=== PATIENT | male | born 1960 | race Caucasian/White ===

== ENCOUNTER 2020-09-20 08:17 | Outpatient (REF) | payer BC, SELFPAY ==
[2020-09-20 10:17] LABS: MANUAL DIFF FLAG NO
[2020-09-20 10:24] LABS: Basophils Percent Auto 0.7 % (0-2); Eosinophils Absolute Auto 0.3 X10*3/uL (0.0-0.4); Eosinophils Percent Auto 4.7 % (0-4); Hematocrit 50.7 % (42-52); Hemoglobin 17.5 g/dl (14.0-18.0); Imm Gran Abs Auto 0.02 X10*3/uL (0.00-0.03); Imm Gran Pct Auto 0.3 % (0.0-0.4); Lymphocytes Absolute Auto 1.2 X10*3/uL (1.2-4.9); Lymphocytes Percent Auto 20.7 % (20-40); Mean Corpuscular HGB Conc 34.5 g/dl (31.0-36.0); Mean Corpuscular Hemoglobin 31.3 pg (27.0-33.0); Mean Corpuscular Volume 90.5 fL (80-98); Mean Platelet Volume 9.8 fL (9.4-12.4); Monocytes Absolute Auto 0.5 X10*3/uL (0.1-1.2); Monocytes Percent Auto 8.5 % (2-11); Neutrophils Absolute Auto 3.9 X10*3/uL (2.0-8.3); Neutrophils Percent Auto 65.1 % (45-73); Platelet Count 254 X10*3/uL (160-400); Red Cell Distribution Width 12.6 % (11.0-16.0)
[2020-09-20 10:47] LABS: Alanine Aminotransferase 20 U/L (0-40); Albumin Level 4.3 g/dL (3.5-5.0); Alkaline Phosphatase 68 U/L (39-117); Anion Gap 11 (12-20); Aspartate Amino Transferase 22 U/L (5-37); Bilirubin Total 1.3 mg/dL (0.0-1.0); Blood Urea Nitrogen 14 mg/dL (9-16); Calcium 8.7 mg/dL (8.4-10.2); Carbon Dioxide 28 mmol/L (22-29); Chloride 103 mmol/L (96-108); Cholesterol 223 mg/dL; Estimated Glomerular Filt Rate > 60; Glucose Fasting 90 mg/dL (60-99); HDL Cholesterol 59 mg/dL; LDL Cholesterol Calculated 145 mg/dl; Potassium 4.2 mmol/l (3.3-5.1); Sodium 138 mmol/L (135-145); Triglycerides 98 mg/dL
== END 2020-09-20 08:18 | disposition home or self-care (01) ==
LOC: HO.10HDL 08:17
PROVIDERS: PCP Internal Medicine; Visit Provider Internal Medicine
DX: I10 Essential (primary) hypertension (principal)
CPT/HCPCS: 36415; 80053; 80061; 85025

== ENCOUNTER 2022-09-06 07:48 | Outpatient (REF) | payer BC, SELFPAY ==
[2022-09-06 08:05] LABS: MANUAL DIFF FLAG NO
[2022-09-06 08:45] LABS: Basophils Percent Auto 0.7 % (0-2); Eosinophils Absolute Auto 0.3 X10*3/uL (0.0-0.4); Eosinophils Percent Auto 4.2 % (0-4); Hematocrit 50.1 % (42.0-52.0); Hemoglobin 17.3 g/dl (14.0-18.0); Imm Gran Abs Auto 0.02 X10*3/uL (0.00-0.03); Imm Gran Pct Auto 0.3 % (0.0-0.4); Lymphocytes Absolute Auto 1.4 X10*3/uL (1.2-4.9); Lymphocytes Percent Auto 23.7 % (20-40); Mean Corpuscular HGB Conc 34.5 g/dl (31.0-36.0); Mean Corpuscular Hemoglobin 30.8 pg (27.0-33.0); Mean Corpuscular Volume 89.3 fL (80.0-98.0); Mean Platelet Volume 9.3 fL (9.4-12.4); Monocytes Absolute Auto 0.5 X10*3/uL (0.1-1.2); Monocytes Percent Auto 8.2 % (2-11); Neutrophils Absolute Auto 3.8 x10*3/uL (2.0-8.3); Neutrophils Percent Auto 62.9 % (45-73); Platelet Count 215 X10*3/uL (160-400); Red Blood Count 5.61 X10*6/uL (4.60-5.80)
[2022-09-06 09:15] LABS: Alanine Aminotransferase 18 U/L (0-40); Albumin Level 4.3 g/dL (3.5-5.0); Alkaline Phosphatase 61 U/L (39-117); Anion Gap 14 (12-20); Aspartate Amino Transferase 22 U/L (5-37); Bilirubin Total 1.7 mg/dL (0.0-1.0); Blood Urea Nitrogen 19 mg/dL (9-16); Calcium 9.5 mg/dL (8.4-10.2); Carbon Dioxide 27 mmol/L (22-29); Chloride 103 mmol/L (96-108); Cholesterol 218 mg/dL; Estimated Glomerular Filt Rate > 60; Glucose Fasting 91 mg/dL (60-99); HDL Cholesterol 57 mg/dL; LDL Cholesterol Calculated 143 mg/dl; Potassium 4.4 mmol/L (3.3-5.1); Sodium 140 mmol/L (135-145); Total Protein 6.8 g/dL (6.5-8.0); Triglycerides 92 mg/dL
[2022-09-06 09:41] LABS: Thyroid Stimulating Hormone 2.08 uIU/mL (0.32-4.0)
[2022-09-06 10:13] LABS: Prostate Specific Antigen Scr 4.94 ng/mL (<0.05-4.0)
== END 2022-09-06 07:49 | disposition home or self-care (01) ==
LOC: HO.LAB 07:48
PROVIDERS: PCP Internal Medicine; Visit Provider Internal Medicine
DX: Z00.00 Encounter for general adult medical examination without abnormal findings (principal); E03.9 Hypothyroidism, unspecified; E78.5 Hyperlipidemia, unspecified; I10 Essential (primary) hypertension; Z13.0 Encounter for screening for diseases of the blood and blood-forming organs and certain disorders involving the immune mechanism; Z12.5 Encounter for screening for malignant neoplasm of prostate
CPT/HCPCS: 36415; 80053; 80061; 84153; 84443; 85025

== ENCOUNTER 2023-10-05 08:12 | Outpatient (REF) | payer BC, SELFPAY ==
[2023-10-05 08:52] LABS: MANUAL DIFF FLAG NO
[2023-10-05 09:14] LABS: Basophils Percent Auto 0.5 % (0-2); Eosinophils Absolute Auto 0.3 X10*3/uL (0.0-0.4); Eosinophils Percent Auto 4.7 % (0-4); Hematocrit 49.3 % (42.0-52.0); Hemoglobin 17.1 g/dl (14.0-18.0); Imm Gran Abs Auto 0.02 X10*3/uL (0.00-0.03); Imm Gran Pct Auto 0.4 % (0.0-0.4); Lymphocytes Absolute Auto 1.1 X10*3/uL (1.2-4.9); Lymphocytes Percent Auto 20.2 % (20-40); Mean Corpuscular HGB Conc 34.7 g/dl (31.0-36.0); Mean Corpuscular Hemoglobin 31.5 pg (27.0-33.0); Mean Corpuscular Volume 90.8 fL (80.0-98.0); Mean Platelet Volume 9.1 fL (9.4-12.4); Monocytes Absolute Auto 0.5 X10*3/uL (0.1-1.2); Monocytes Percent Auto 8.5 % (2-11); Neutrophils Absolute Auto 3.6 x10*3/uL (2.0-8.3); Neutrophils Percent Auto 65.7 % (45-73); Platelet Count 229 X10*3/uL (160-400); Red Blood Count 5.43 X10*6/uL (4.60-5.80); Red Cell Distribution Width 12.8 % (11.0-16.0); White Blood Count 5.5 X10*3/uL (4.8-10.8)
[2023-10-05 09:53] LABS: Alanine Aminotransferase 17 U/L (0-40); Albumin Level 4.2 g/dL (3.5-5.0); Alkaline Phosphatase 62 U/L (39-117); Anion Gap 10 (12-20); Aspartate Amino Transferase 20 U/L (5-37); Bilirubin Total 1.1 mg/dL (0.0-1.0); Blood Urea Nitrogen 18 mg/dL (9-16); Calcium 9.3 mg/dL (8.4-10.2); Carbon Dioxide 28 mmol/L (22-29); Chloride 107 mmol/L (96-108); Cholesterol 214 mg/dL (<200); Estimated Glomerular Filt Rate > 60; Glucose Fasting 96 mg/dL (60-99); HDL Cholesterol 55 mg/dL (>40); LDL Cholesterol Calculated 136 mg/dL (<100); Potassium 4.6 mmol/L (3.3-5.1); Sodium 140 mmol/L (135-145); Triglycerides 119 mg/dL (<150)
== END 2023-10-05 08:13 | disposition home or self-care (01) ==
LOC: HO.LAB 08:12
PROVIDERS: PCP Internal Medicine; Visit Provider Internal Medicine
DX: Z00.00 Encounter for general adult medical examination without abnormal findings (principal); Z12.5 Encounter for screening for malignant neoplasm of prostate; E78.5 Hyperlipidemia, unspecified; N28.9 Disorder of kidney and ureter, unspecified; D64.9 Anemia, unspecified
CPT/HCPCS: 36415; 80053; 80061; 84153; 85025

== ENCOUNTER 2023-11-20 09:19 | Outpatient (AMB) | payer BC, SELFPAY ==
[2023-11-20 09:19] VITALS: BP 118/72; PULSE 69; O2SAT 100; BMI 23.8
--- NOTE | 2023-11-20 09:19 | MHC.PC.OV ---
Vital Signs 11/20/23 09:19 Height 5 ft 8.5 in Weight 159 lb BMI 23.8 BP 118/72 Blood Pressure Location Lt brachial Position Sitting Pulse 69 Pulse Source Pulse Oximeter Pulse Oximetry (%) 100 Oxygen Delivery Method Room Air Intake Visit Reasons: 3mth f/u Sound Engineer Required: No Allergies No Known Allergies Allergy (Verified 11/20/23 09:20) Medication List - Last Reconciled 11/20/23 by Alan Vazquez MD atenolol 25 mg PO BID Tobacco use date assessed: 11/20/23 HPI 3mth f/u HPI Details HTN on Rx; doing well; com[pliant PFSH Medical History (Updated 05/21/23 @ 13:59 by Alan Vazquez MD) Hyperlipidemia Surgical History No pertinent past surgical history Family History Father No problems noted. Mother No problems noted. 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 How often do you have a drink containing alcohol?: Never Total Score: 0 GANGA-7 AMB Questionnaire GANGA-7 Date GANGA - 7 assessed: 02/13/23 Source: Developed by Drs. Ha Nicolas, Zena Casey, Aquilino Bridges and colleagues, with an educational toma from [employer]. Review of Systems Const Denies chills, Denies headache(s) and Denies weight loss ENT Denies headache(s) Card Denies chest pain, Denies syncope, Denies irregular heart rhythm and Denies dyspnea Resp Denies chest congestion, Denies cough and Denies dyspnea GI Denies abdominal pain, Denies change in stool character, Denies nausea and Denies vomiting Musc Denies deformity and Denies joint swelling Neuro Denies syncope and Denies headache(s) Physical exam (Primary Care) Vital Signs: Last Vital Signs Pulse 69 11/20/23 09:19 BP 118/72 11/20/23 09:19 Pulse Ox 100 11/20/23 09:19 Oxygen Delivery Method Room Air 11/20/23 09:19 BMI result Body Mass Index 23.8 Tobacco/Smoking Status: Tobacco use Status Tobacco use date assessed 11/20/23 11/20/23 09:25 Patient Tobacco Use Status Never used Tobacco 11/20/23 09:25 e-Cigarette/Vaping Use Never Used 11/20/23 09:25 Thrive Assessment: Date of Thrive Assessment Date Thrive assessed 02/13/23 11/20/23 09:25 Const General: cooperative, comfortable, no acute distress and alert Neck Neck: Yes no lymphadenopathy Thyroid: Thyroid normal Resp Effort & Inspection: normal respiratory effort Auscultation: clear to auscultation bilaterally Percussion: percussion normal Cardio Jugular venous distension: no JVD Palpation: normal PMI Rate: regular rate Rhythm: regular rhythm Heart sounds: S1 normal heart sound present and S2 normal heart sound present GI Inspection: Yes normal to inspection Palpation (GI): No hepatosplenomegaly present Skin General skin exam: no rashes or lesions noted Extrem General: Yes no clubbing, cyanosis or edema Assessment and Plan Assessment & Plan (1) Hypertension: Code(s): I10 - Essential (primary) hypertension Plan: stable; samerx Coding Level of Care Code Est Pt Level 3 (71517) Diagnoses Hypertension I10
== END 2023-11-20 09:36 | disposition home or self-care (01) ==
PROVIDERS: PCP Internal Medicine; Visit Provider Internal Medicine
DX: I10 Essential (primary) hypertension (principal)
CPT/HCPCS: 99213

== ENCOUNTER 2024-02-04 10:28 | Day surgery (SDC) | payer BC, SELFPAY ==
[2024-01-31 12:35] VITALS: BMI 23.7
--- NOTE | 2024-01-31 14:34 | P.CONAN_ITS ---
Documented by User: Doreen Mcwilliams NP 01/31/24 14:34 HPI - Anesthesia Eval Consult details Narrative: 63yo M for Colonoscopy [facility] Active Problems Active Problems: All Active Problems (Updated 01/31/24 @ 12:28 by Suzanne Barreto RN) Colon polyps (Acute) Hearing loss (Acute) Hypertension (Acute) Physical exam (Acute) Hyperlipidemia (Acute) Past Medical History Medical History Palpitations Hyperlipidemia Family History Family History Father No problems noted. Mother No problems noted. 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 Mother No problems noted. Family history of problems with anesthesia: No Surgical History Surgical History Hx of eye surgery H/O colonoscopy History of Problems with Anesthesia: No Social History Social History (Updated 05/19/22 @ 13:41 by CHRISTIANO Sampson) Housing: House Alcohol intake: current Alcohol intake frequency: holidays/special occasions only Patient Tobacco Use Status: Never used Tobacco e-Cigarette/Vaping Use: Never Used Second Hand Smoke Exposure: No Use of substances other than those prescribed or required for medical reasons: No Are you DNR?: No Advance Directives: No Advance Directives Information Provided: Yes service: No Current occupational status: employed 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 Cognitive needs: No Hearing needs: No Vision needs: Yes (glasses) Meds Allergies Allergy/AdvReac Type Severity Reaction Status Date / Time No Known Allergies Allergy Verified 02/04/24 10:41 Exam Airway Mallampati Class: II TM Dist: >3cm Neck ROM: Full Partial: Upper Heart: rrr Lungs: cta Assessment and Plan Assessment Anesthesia Assessment: Anesthesia Plan Discussed Final Anesthetic Review Family History of Problems with Anesthesia: No History of Problems with Anesthesia: No NPO: Yes ASA Class: II Final Preanesthetic Review: No Changes in Pt Med Stat, Meds/Allgs Chart Reviewed and Consent Obtained/Reviewed Patient Risk: Low Procedure Risk: Low Anesthetic Plan Anesthetic Plan: MAC: Disposition: Standard PACU
[2024-02-04 10:42] VITALS: BMI 22.5
[2024-02-04 10:44] VITALS: BP 124/75; PULSE 68; RESP 16; TEMP 36.2; O2SAT 98
[2024-02-04] MEDS: Lactated Ringers 1,000 ML 100 ML IVCONT (10:54)
--- NOTE | 2024-02-04 11:53 | PM.OP ---
Brief Operative Note Date of Service: 02/04/24 Pre-op diagnosis: Screening Post-op diagnosis: other (Diverticulosis) Procedure: Colonoscopy to the cecum and TI Surgeon: Ha Anderson MD Anesthesia: MAC Was an Ship'S Pilot used for this Procedure?: No Estimated blood loss (mL): 0 Pathology: none sent Condition: stable Disposition: PACU
[2024-02-04 11:54] VITALS: BP 81/44; PULSE 68; RESP 18; TEMP 37; O2SAT 98
[2024-02-04 12:09] VITALS: BP 90/49; PULSE 64; RESP 18; O2SAT 97
[2024-02-04 12:23] VITALS: BP 116/67; PULSE 57; RESP 16; TEMP 36.4; O2SAT 99
--- NOTE | 2024-02-04 12:35 | OP_ITS ---
DATE OF SERVICE: 02/04/2024 SURGEON: Ha Anderson MD INDICATIONS: The patient presents for evaluation of colorectal cancer screening and personal history of tubular adenoma of the colon. Full consent has been obtained from him for this, including risks of bleeding and perforation. PREOPERATIVE DIAGNOSIS: Colorectal cancer screening and personal history of tubular adenoma of the colon. POSTOPERATIVE DIAGNOSIS: PROCEDURE PERFORMED: Colonoscopy to cecum and terminal ileum. ESTIMATED BLOOD LOSS: COMPLICATIONS: ANESTHESIA: Monitored anesthesia care. ASSISTANTS: SPECIMENS: POSTOPERATIVE DIAGNOSES: Colorectal cancer screening and personal history of tubular adenoma of the colon, diverticulosis, and internal hemorrhoids. DESCRIPTION OF PROCEDURE: The patient was placed in the left lateral decubitus position. The digital rectal exam revealed no abnormalities. The Olympus video pediatric colonoscope was entered into the rectum and advanced easily to the cecum. Once in the cecum, I did identify normal-appearing cecal pouch with appendiceal orifice and a normal-appearing ileocecal valve. The terminal ileum was cannulated and appeared normal. The scope was withdrawn back in the colon. The entire cecum and ileocecal valve appeared normal. Scope was slowly withdrawn assessing all mucosal surfaces carefully. Preparation was excellent. I did not visualize any sign of polyps, colitis, nor angiodysplasia. There was a mild amount of sigmoid diverticulosis. In the rectum, scope was retroflexed visualizing internal hemorrhoids, but no other pathology. The rectal mucosa appeared normal. The scope was straightened and withdrawn from the patient. He tolerated the procedure well and was returned to the recovery area in stable condition. IMPRESSION: 1. Diverticulosis. 2. Internal hemorrhoids. PLAN: I would recommend a repeat colonoscopy in 5 years for further screening. He will otherwise see me on a p.r.n. basis. This has been discussed with his sister. MD LETITIA Raza/IVONEL / [phone]
== END 2024-02-04 13:16 | disposition home or self-care (01) ==
PROVIDERS: PCP Internal Medicine; Visit Provider Internal Medicine
PROC: 0DJD8ZZ Inspection of Lower Intestinal Tract, Via Natural or Artificial Opening Endoscopic (ICD-10-PCS; CPT 45378; principal; 2024-02-04 11:10)
DX: Z12.11 Encounter for screening for malignant neoplasm of colon (principal); Z86.010 Personal history of colon polyps; K57.30 Diverticulosis of large intestine without perforation or abscess without bleeding; K64.8 Other hemorrhoids; R00.2 Palpitations; Z79.899 Other long term (current) drug therapy
CPT/HCPCS: 45378; J2704

== ENCOUNTER 2024-05-26 09:45 | Outpatient (AMB) | payer BC, SELFPAY ==
[2024-05-26 09:47] VITALS: BP 118/72; PULSE 68; O2SAT 98; BMI 23.7
--- NOTE | 2024-05-26 09:47 | A.OFFPC_ITS ---
Vital Signs 05/26/24 09:47 Height 5 ft 8.5 in Weight 158 lb BMI 23.7 BP 118/72 Blood Pressure Location Lt brachial Position Sitting Pulse 68 Pulse Source Pulse Oximeter Pulse Oximetry (%) 98 Oxygen Delivery Method Room Air Intake Visit Reasons: Annual Exam Stave Cutting Supervisor Required: No Fire Prevention Bureau Captain: Not Required per policy Accompanied by: Self / Same As Patient Allergies No Known Allergies Allergy (Verified 05/26/24 09:47) Medication List - Last Reconciled 05/26/24 by Alan Vazquez MD atenolol 25 mg PO BID Tobacco use date assessed: 05/26/24 Dental Screening Dental Screen Date: 05/26/24 Did you have a dental visit in the last 12 months?: Yes Did you have a dental problem in the last 6 months where you did not have access to dental care?: No Was dental information given to patient?: Patient has dentist HPI Annual Exam HPI Details HTN on Rx; doing well PFSH Medical History Palpitations Hyperlipidemia Surgical History Hx of eye surgery H/O colonoscopy Family History Father No problems noted. Mother No problems noted. 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 1. Little interest or pleasure in doing things: not at all 2. Feeling down, depressed, or hopeless: not at all 3. Trouble falling or staying asleep, or sleeping too much: not at all 4. Feeling tired or having little energy: not at all 5. Poor appetite or overeating: not at all 6. Feeling bad about yourself - or that you are a failure or have let yourself or your family down: not at all 7. Trouble concentrating on things, such as reading the newspaper or watching television: not at all 8. Moving or speaking so slowly that other people could have noticed. Or the opposite - being so fidgety or restless that you have been moving around a lot more than usual: not at all 9. Thoughts that you would be better off or of hurting yourself in some way: not at all Total score: 0 Depression Screening Interpretation: Negative Depression Screening Done: Yes 92216 - PHQ-9 Billing: Yes Source: Developed by Drs. Ha Nicolas, Zena Casey, Aquilino Bridges and colleagues, with an educational toma from [employer]. Thrive Questionnaire Date Thrive assessed: 05/26/24 I am a: Patient What is your living situation today?: I have a steady place to live Within the past 12 months, did the food you bought not last and you didn't have the money to get more?: Never true Within the past 12 months, did you worry whether your food would run out before you got money to buy more?: Never true Do you have trouble paying for medicines?: No Do you have trouble getting transportation to medical appointments?: No Do you have trouble paying your heating and electricity bill?: No Do you have trouble taking care of your child, family member or friend?: No Do you have trouble with day-to-day activities such as bathing, preparing meals, shopping, managing finances, etc.?: No Are you currently unemployed and looking for a job?: No Are you interested in more education?: No Please select the resources that you would like help with: None THRIVE Score: 0 AUDIT C Alcohol Use Questionnaire (AUDIT-C) 1. How often do you have a drink containing alcohol?: Never Total Score: 0 GAGNA-7 AMB Questionnaire GANGA-7 Date GANGA - 7 assessed: 02/13/23 Source: Developed by Drs. Ha Nicolas, Zena Casey, Aquilino crawford nd colleagues, with an educational toma from [employer]. Review of Systems Const Denies chills, Denies fatigue, Denies headache(s) and Denies weight loss Eyes Denies change in vision, Denies diplopia and Denies eye pain ENT Denies vertigo, Denies dizziness, Denies headache(s) and Denies nasal discharge Card Denies chest pain, Denies rapid heart rate and Denies dyspnea on exertion Resp Denies chest congestion, Denies cough, Denies pain with cough and Denies dyspnea on exertion GI Denies abdominal pain, Denies hematochezia and Denies change in bowel habits Musc Denies myalgias, Denies arthralgias and Denies joint swelling Skin/Breast Denies lesions and Denies unusual bruising Neuro Denies vertigo, Denies dizziness, Denies headache(s) and Denies focal weakness Endo Denies fatigue Physical exam (Primary Care) Vital Signs: Last Vital Signs Pulse 68 05/26/24 09:47 BP 118/72 05/26/24 09:47 Pulse Ox 98 05/26/24 09:47 Oxygen Delivery Method Room Air 05/26/24 09:47 BMI result Body Mass Index 23.7 Tobacco/Smoking Status: Tobacco use Status Tobacco use date assessed 05/26/24 05/26/24 09:48 Patient Tobacco Use Status Never used Tobacco 05/26/24 09:48 e-Cigarette/Vaping Use Never Used 05/26/24 09:48 PHQ-9: PHQ-9 Score PHQ-9: Total score 0 05/26/24 09:48 Depression Screening Interpretation: Negative Thrive Assessment: Date of Thrive Assessment Date Thrive assessed 05/26/24 05/26/24 09:48 Const General: cooperative, healthy appearing and no acute distress Orientation/consciousness: oriented to person, oriented to place and oriented to time [facility] Head: Yes normal to inspection, Yes normocephalic and Yes atraumatic Mouth: Normal oral and palatal mucosa present and tongue normal Throat: Yes posterior oropharynx normal and Yes uvula midline Eyes General: appearance normal, both eyes and all related structures Neck Neck: Yes normal visual inspection, Yes full ROM and Yes no lymphadenopathy Thyroid: Thyroid normal Carotids: normal carotid upstroke Chest Chest palpation & inspection: normal inspection of the chest Resp Effort & Inspection: normal respiratory effort and able to speak in complete sentences Auscultation: clear to auscultation bilaterally Cardio Jugular venous distension: no JVD Palpation: normal PMI Rate: regular rate Rhythm: regular rhythm Heart sounds: S1 normal heart sound present and S2 normal heart sound present GI Inspection: Yes normal to inspection Palpation (GI): Soft to palpation and No hepatosplenomegaly present Auscultation: normal bowel sounds General: Yes no CVA tenderness Back/Spine/Pelvis Back: no CVA tenderness Skin General skin exam: no rashes or lesions noted Neuro General: oriented to person, oriented to place and oriented to time Extrem General: Yes normal to inspection and Yes full ROM Assessment and Plan Assessment & Plan (1) Physical exam: Code(s): Z00.00 - Encounter for general adult medical examination without abnormal findings Plan: stable; do labs (2) Hypertension: Code(s): I10 - Essential (primary) hypertension Plan: stable; same rx Orders: Orders Lipid Panel Today Z13.220 - Encounter for screening for lipoid disorders Thyroid Stimulating Hormone Today Z13.29 - Encounter for screening for other suspected endocrine disorder Complete Blood Count Auto Diff Today Z13.0 - Encounter for screening for diseases of the blood and blood-forming organs and certain disorders involving the immune mechanism Comprehensive [place]. Panel Fast Today Z13.9 - Encounter for screening, unspecified Coding Level of Care Code Est Pt Prev Care 40-64y(61194) Diagnoses Physical exam Z00.00 Hypertension I10
== END 2024-05-26 10:03 | disposition home or self-care (01) ==
PROVIDERS: PCP Internal Medicine; Visit Provider Internal Medicine
DX: Z00.00 Encounter for general adult medical examination without abnormal findings (principal); I10 Essential (primary) hypertension
CPT/HCPCS: 99396

== ENCOUNTER 2024-06-17 11:12 | Outpatient (AMB) | payer BC, SELFPAY ==
[2024-06-17 11:13] VITALS: BP 110/72; PULSE 70; O2SAT 98; BMI 23.8
--- NOTE | 2024-06-17 11:13 | MHC.PC.OV ---
Vital Signs 06/17/24 11:13 Height 5 ft 8.5 in Weight 159 lb BMI 23.8 BP 110/72 Blood Pressure Location Lt brachial Position Sitting Pulse 70 Pulse Source Pulse Oximeter Pulse Oximetry (%) 98 Oxygen Delivery Method Room Air Intake Visit Reasons: Vertigo, Hearing issues Developmental Specialist: Not Required per policy Accompanied by: Self / Same As Patient Allergies No Known Allergies Allergy (Verified 06/17/24 11:13) Medication List - Last Reconciled 06/17/24 by Alan Vazquez MD atenolol 25 mg PO BID Tobacco use date assessed: 05/26/24 Fall risk assessment: No Falls in past year Last assessed Fall Risk: 06/17/24 Dental Screening Dental Screen Date: 05/26/24 HPI Vertigo, Hearing issues HPI Details vertigo and decreased hearing in left ear for 2 weeks PFSH Medical History Palpitations Hyperlipidemia Surgical History Hx of eye surgery H/O colonoscopy Family History Father No problems noted. Mother No problems noted. 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 Ha Nicolas, Zena Casey, Aquilino Bridges and colleagues, with an educational toma from [employer]. Review of Systems Const Denies chills, Denies headache(s) and Denies weight loss ENT Denies headache(s) Card Denies chest pain, Denies syncope, Denies irregular heart rhythm and Denies dyspnea Resp Denies chest congestion, Denies cough and Denies dyspnea GI Denies abdominal pain, Denies change in stool character, Denies nausea and Denies vomiting Musc Denies deformity and Denies joint swelling Neuro Denies syncope and Denies headache(s) Physical exam (Primary Care) Vital Signs: Last Vital Signs Pulse 70 06/17/24 11:13 BP 110/72 06/17/24 11:13 Pulse Ox 98 06/17/24 11:13 Oxygen Delivery Method Room Air 06/17/24 11:13 BMI result Body Mass Index 23.8 Tobacco/Smoking Status: Tobacco use Status Tobacco use date assessed 05/26/24 06/17/24 11:14 Patient Tobacco Use Status Never used Tobacco 06/17/24 11:14 e-Cigarette/Vaping Use Never Used 06/17/24 11:14 Thrive Assessment: Date of Thrive Assessment Date Thrive assessed 05/26/24 06/17/24 11:14 Const General: cooperative, comfortable, no acute distress and alert Neck Neck: Yes no lymphadenopathy Thyroid: Thyroid normal Resp Effort & Inspection: normal respiratory effort Auscultation: clear to auscultation bilaterally Percussion: percussion normal Cardio Jugular venous distension: no JVD Palpation: normal PMI Rate: regular rate Rhythm: regular rhythm Heart sounds: S1 normal heart sound present and S2 normal heart sound present GI Inspection: Yes normal to inspection Palpation (GI): No hepatosplenomegaly present Skin General skin exam: no rashes or lesions noted Extrem General: Yes no clubbing, cyanosis or edema Assessment and Plan Assessment & Plan (1) Vertigo: Code(s): R42 - Dizziness and giddiness Plan: rx sent; ref for hearing eval Orders: Referrals Speech and Hearing Referral H91.90 - Unspecified hearing loss, unspecified ear Medications: New meclizine 25 mg PO QID PRN 30 tabs 2RF dizziness Coding Level of Care Code Est Pt Level 3 (33096) Diagnoses Vertigo R42
== END 2024-06-17 11:31 | disposition home or self-care (01) ==
PROVIDERS: PCP Internal Medicine; Visit Provider Internal Medicine
DX: R42 Dizziness and giddiness (principal)
CPT/HCPCS: 99213

== ENCOUNTER 2024-07-07 07:59 | Outpatient (REF) | payer BC, SELFPAY ==
[2024-07-07 10:24] LABS: MANUAL DIFF FLAG NO
[2024-07-07 10:29] LABS: Basophils Percent Auto 0.6 % (0-2); Eosinophils Absolute Auto 0.3 X10*3/uL (0.0-0.4); Eosinophils Percent Auto 3.7 % (0-4); Hematocrit 50.3 % (42.0-52.0); Hemoglobin 17.8 g/dl (14.0-18.0); Imm Gran Abs Auto 0.03 X10*3/uL (0.00-0.03); Imm Gran Pct Auto 0.4 % (0.0-0.4); Lymphocytes Absolute Auto 1.4 X10*3/uL (1.2-4.9); Lymphocytes Percent Auto 19.8 % (20-40); Mean Corpuscular HGB Conc 35.4 g/dl (31.0-36.0); Mean Corpuscular Hemoglobin 31.9 pg (27.0-33.0); Mean Corpuscular Volume 90.1 fL (80.0-98.0); Mean Platelet Volume 9.4 fL (9.4-12.4); Monocytes Absolute Auto 0.5 X10*3/uL (0.1-1.2); Monocytes Percent Auto 7.8 % (2-11); Neutrophils Absolute Auto 4.6 x10*3/uL (2.0-8.3); Neutrophils Percent Auto 67.7 % (45-73); Platelet Count 260 X10*3/uL (160-400); Red Blood Count 5.58 X10*6/uL (4.60-5.80); Red Cell Distribution Width 13.2 % (11.0-16.0); White Blood Count 6.8 X10*3/uL (4.8-10.8)
[2024-07-07 10:56] LABS: Alanine Aminotransferase 19 U/L (0-40); Albumin Level 4.3 g/dL (3.5-5.0); Alkaline Phosphatase 69 U/L (39-117); Anion Gap 11 (12-20); Aspartate Amino Transferase 20 U/L (5-37); Bilirubin Total 1.2 mg/dL (0.0-1.0); Blood Urea Nitrogen 15 mg/dL (9-16); Calcium 9.4 mg/dL (8.4-10.2); Carbon Dioxide 28 mmol/L (22-29); Chloride 106 mmol/L (96-108); Cholesterol 221 mg/dL (<200); Estimated Glomerular Filt Rate > 60; Glucose Fasting 102 mg/dL (60-99); HDL Cholesterol 62 mg/dL (>40); LDL Cholesterol Calculated 139 mg/dL (<100); Potassium 3.8 mmol/L (3.3-5.1); Sodium 141 mmol/L (135-145); Total Protein 7.2 g/dL (6.5-8.0); Triglycerides 103 mg/dL (<150)
[2024-07-07 11:11] LABS: Thyroid Stimulating Hormone 2.31 uIU/mL (0.32-4.0)
== END 2024-07-07 08:00 | disposition home or self-care (01) ==
LOC: HO.10HDL 07:59
PROVIDERS: Visit Provider Internal Medicine
DX: Z13.220 Encounter for screening for lipoid disorders (principal); Z13.29 Encounter for screening for other suspected endocrine disorder; Z13.0 Encounter for screening for diseases of the blood and blood-forming organs and certain disorders involving the immune mechanism; Z13.6 Encounter for screening for cardiovascular disorders
CPT/HCPCS: 36415; 80053; 80061; 84443; 85025

== ENCOUNTER 2024-07-11 09:20 | Outpatient (REF) | payer BC, SELFPAY | END 2024-07-11 09:21 | disposition home or self-care (01) | LOC: HO.SH 09:20 | PROVIDERS: Visit Provider Internal Medicine | DX: Z01.118 Encounter for examination of ears and hearing with other abnormal findings (principal); H90.3 Sensorineural hearing loss, bilateral | CPT/HCPCS: 92557; 92567 ==

== ENCOUNTER 2024-08-26 15:25 | Outpatient (REF) | payer SELFPAY | END 2024-08-26 15:26 | disposition home or self-care (01) | LOC: HO.HAP 15:25 | PROVIDERS: Visit Provider Internal Medicine | DX: Z13.89 Encounter for screening for other disorder (principal) ==

== ENCOUNTER 2024-10-15 15:46 | Outpatient (REF) | payer BC, SELFPAY ==
[2024-10-15] MEDS: gadobutroL 7.5 ML VIAL IVPUSH (16:38)
== END 2024-10-15 15:47 | disposition home or self-care (01) ==
LOC: HO.MRI 15:46
PROVIDERS: PCP Internal Medicine; Visit Provider Otolaryngology
DX: H81.4 Vertigo of central origin (principal); D33.3 Benign neoplasm of cranial nerves
CPT/HCPCS: 70553; A9585

== ENCOUNTER 2025-05-27 08:48 | Outpatient (AMB) | payer BC, SELFPAY ==
--- OUTSIDE RECORDS SUMMARY | 2024-02-04 07:10 | XMS_ITS ---
Author Organization [facility] Address [address] [place] [address] Care Team Providers Care Commodity Manager Name Role Phone Alan Vazquez MD Primary Care Provider Ha Donaldson Unavailable [phone] REASON FOR VISIT screening,hx polyps Problems Problem Type SNOMED Code ICD Code Onset Dates Problem Status W/U Status Risk Notes Problem History of polyp of colon (situation) (978825348) Personal history of colonic polyps (Z86.010) Active confirmed Problem Diverticulosis o f large intestine without perforation or abscess without bleeding (K57.30) Active confirmed Encounters Encounter Location Date Provider Diagnosis [facility] [address] [place] [phone] 02/04/2024 Ha Anderson Encounter for scre ening colonoscopy Z12.11 ; Personal history of colonic polyps Z86.010 ; Diverticulosis of large intestine without perforation or abscess without bleeding K57.30 and Other hemorrhoids K64.8 Assessments Encounter Date Diagnosis (ICD Code) Assessment Notes Treatment Notes Treatment Clinical Notes Section Notes 02/04/2024 Encounter for screening colonoscopy (ICD-10 - Z12.11) 02/04/2024 Personal history of colonic polyps (ICD-10 - Z86.010) 02/04/2024 Diverticulosis of large intestine without perforation or abscess without bleeding (ICD-10 - K57.30) 02/04/2024 Other hemorrhoids (ICD-10 - K64.8) Plan Of Treatment No Information Progress Notes * NILTON BAEZAOB:1960 (64 yo M)Acc No.[id number]:02/04/2024 COLON WITH MAC Patient: FRITZ LAL Provider: Emmie Anderson MD :1960 A ge:63 Y S ex:Male Date:02/04/2024 [facility] Pcp:Alan Vazquez MD Subjective: * Chief Complaints: * 1 . Screening,hx polyps. * Medical History: Objective: * Vitals: Assessment: * Assessment: 1. E ncounter for screening colonoscopy - Z12.11 (Primary) 2 . P ersonal history of colonic polyps - Z86.010 3 . D iverticulosis of large intestine without perforation or abscess without bleeding - K57.30 4 . O ther hemorrhoids - K64.8? Plan: * Treatment: * Procedure Codes: 4 5378 DIAGNOSTIC COLONOSCOPY, Modifiers: 33 * Preventive Medicine: FAUSTO Screening: C olonoscopy W as interval between colonoscopies three years or more? Y es, W as last colonoscopy performed three or more years ago? Y es. * * The named appointment provid er may or may not be the originator of this progress note, and it is not deemed complete until electronically signed by the appointment provider. Sign off status: Pending * Provider: Emmie Anderson MD Date: 0 02/04/2024 Generated for Lucy irwin/Hay/Aritting on: 0 05/27/2025 08:52 AM EDT
[2025-05-27 08:52] VITALS: BP 122/80; PULSE 71; TEMP 36.2; O2SAT 98; BMI 23.4
--- NOTE | 2025-05-27 08:52 | A.OFFPC_ITS ---
Vital Signs 05/27/25 08:52 Height 5 ft 8.5 in Weight 156 lb 6 oz BMI 23.4 BP 122/80 Blood Pressure Location Lt brachial Position Sitting Pulse 71 Pulse Source Pulse Oximeter Temp 97.1 F Temp Source Temporal Artery Scan Pulse Oximetry (%) 98 Oxygen Delivery Method Room Air Intake Visit Reasons: MISTY DR Vazquez Allergies No Known Allergies Allergy (Verified 05/27/25 09:35) Medication List - Last Reconciled 05/27/25 by ARNOL Branch atenolol 25 mg PO BID meclizine 25 mg PO QID PRN Tobacco use date assessed: 05/27/25 Fall risk assessment: No Falls in past year Last assessed Fall Risk: 05/27/25 Dental Screening Dental Screen Date: 05/27/25 Did you have a dental visit in the last 12 months?: Yes Did you have a dental problem in the last 6 months where you did not have access to dental care?: No Was dental information given to patient?: Patient has dentist HPI MISTY DR Vazquez HPI Details Patient is a 64-year-old male was presenting to transition care from Dr. Vazquez who retired couple of months ago. Significant past medical history of hearing loss (bilateral hearing aids), HTN, HLD. The patient is on atenolol for his blood pressure and heart rate control. Patient reports that he used to to get frequent ear discomfort, but last year this became worse and he was referred to ENT. He had an MRI done. There was nothing noted to be fixed surgically. However, he was given hearing aids. He denies chest pain, SOB, heart palpitation or dizziness. Denies abdominal pain or change in bowel habits. No urinary symptoms. The patient labs from August of 2024 was reviewed with him. Appears that his cholesterols were trending in the wrong direction. Also noted in blood work, the patient has 2 elevated PSA. PFSH Medical History Palpitations Hyperlipidemia Surgical History Hx of eye surgery H/O colonoscopy Family History Father No problems noted. Mother No problems noted. 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 1. Little interest or pleasure in doing things: not at all 2. Feeling down, depressed, or hopeless: not at all 3. Trouble falling or staying asleep, or sleeping too much: not at all 4. Feeling tired or having little energy: not at all 5. Poor appetite or overeating: not at all 6. Feeling bad about yourself - or that you are a failure or have let yourself or your family down: not at all 7. Trouble concentrating on things, such as reading the newspaper or watching television: not at all 8. Moving or speaking so slowly that other people could have noticed. Or the opposite - being so fidgety or restless that you have been moving around a lot more than usual: not at all 9. Thoughts that you would be better off or of hurting yourself in some way: not at all Total score: 0 Depression Screening Interpretation: Negative Depression Screening Done: Yes 77504 - PHQ-9 Billing: Yes Source: Developed by Drs. Ha Nicolas, Zena Casey, Aquilino Bridges and colleagues, with an educational toma from [employer]. Thrive Questionnaire Date Thrive assessed: 05/20/25 I am a: Patient What is your living situation today?: I have a steady place to live Within the past 12 months, did the food you bought not last and you didn't have the money to get more?: Never true Within the past 12 months, did you worry whether your food would run out before you got money to buy more?: Never true Do you have trouble paying for medicines?: No Do you have trouble getting transportation to medical appointments?: No Do you have trouble paying your heating and electricity bill?: No Do you have trouble taking care of your child, family member or friend?: No Do you have trouble with day-to-day activities such as bathing, preparing meals, shopping, managing finances, etc.?: No Are you currently unemployed and looking for a job?: No Are you interested in more education?: I choose not to answer this question Please select the resources that you would like help with: None Currently or been in a relationship where the following occur: No concerns reported THRIVE Score: 0 AUDIT C Alcohol Use Questionnaire (AUDIT-C) 1. How often do you have a drink containing alcohol?: Monthly or less 2. How many drinks containing alcohol do you have on a typical day when you are drinking?: 1 or 2 3. How often do you have six or more drinks on one occasion?: Never Total Score: 1 GANGA-7 AMB Questionnaire GANGA-7 Date GANGA - 7 assessed: 05/27/25 Feeling nervous, anxious, or on edge: 0 = Not at all Not being able to stop or control worryin = Not at all Worrying too much about different things: 0 = Not at all Trouble relaxin = Not at all Being so restless that it is hard to sit still: 0 = Not at all Becoming easily annoyed or irritable: 0 = Not at all Feeling afraid as if something awful might happen: 0 = Not at all Total GANGA-7 score (0-4 normal; 5-9 mild; 10-14 moderate; 15-21 severe): 0 Source: Developed by Drs. Ha Nicolas, Zena Casey, Aquilino Bridges and colleagues, with an educational toma from [employer]. GANGA-7 Assessment Billing GANGA-7 Assessment Tool: GANGA-7 Assessment 47662 Review of Systems Const Denies headache(s) Eyes Denies loss of vision ENT Denies vertigo, Denies dizziness, Denies headache(s), Reports hearing loss (Bilateral hearing aids) and Denies sore throat Card Denies chest pain, Denies leg edema and Denies lightheadedness Resp Denies cough, Denies hemoptysis and Denies wheezing GI Denies abdominal pain, Denies melena, Denies constipation, Denies diarrhea and Denies vomiting Denies dysuria, Denies urinary frequency and Denies urinary urgency Musc Denies arthralgias, Denies joint swelling, Denies numbness and Denies tingling Neuro Denies Abnormal speech present, Denies behavioral changes, Denies vertigo, Denies dizziness, Denies headache(s), Denies loss of vision, Denies memory loss, Denies numbness and Denies tingling Psych Denies anxiety, Denies behavioral changes, Denies depression, Denies memory loss and Denies panic attacks Tino/Lymph Denies easy bleeding and Denies easy bruising Aller/Immun Denies wheezing Physical exam (Primary Care) Vital Signs: Last Vital Signs Temp 97.1 F 05/27/25 08:52 Pulse 71 05/27/25 08:52 BP 122/80 05/27/25 08:52 Pulse Ox 98 05/27/25 08:52 Oxygen Delivery Method Room Air 05/27/25 08:52 BMI result Body Mass Index 23.4 Tobacco/Smoking Status: Tobacco use Status Tobacco use date assessed 05/27/25 05/27/25 08:55 Patient Tobacco Use Status Never used Tobacco 05/27/25 08:55 e-Cigarette/Vaping Use Never Used 05/27/25 08:55 PHQ-9: PHQ-9 Score PHQ-9: Total score 0 05/27/25 09:37 Depression Screening Interpretation: Negative Thrive Assessment: Date of Thrive Assessment Date Thrive assessed 05/20/25 05/27/25 08:55 Currently or been in a relationship where the following occur: No concerns reported Const General: healthy appearing, no acute distress, alert and awake Nutritional Appearance: well nourished Orientation/consciousness: oriented to person, oriented to place and oriented to time HENMT Ears: TM's normal bilaterally General nose exam: Normal nasal mucous membranes and turbinates present Eyes Conjunctivae: conjunctivae normal Sclerae: sclerae normal Pupils: Equal, round and reactive pupils present Neck Neck: Yes no lymphadenopathy and Yes no JVD Thyroid: Thyroid normal Carotids: no bruits Resp Effort & Inspection: normal respiratory effort and not tachypneic Auscultation: no crackles, no rales, no rhonchi and no wheezes Cardio Rate: regular rate Rhythm: regular rhythm Heart sounds: no murmurs and normal S1 and S2 GI Palpation (GI): Soft to palpation, nontender, no hepatomegaly and no splenomegaly Auscultation: normal bowel sounds General: Yes no CVA tenderness Back/Spine/Pelvis Back: no CVA tenderness Skin General skin exam: no rashes or lesions noted and dry skin Neuro General: oriented to person, oriented to place and oriented to time Cranial nerves: Yes Equal, round and reactive pupils present Speech: No Abnormal speech present Gait exam (Neuro): Normal gait present Motor exam (neuro): no tremor noted Extrem Right upper extremity: full ROM Left upper extremity: full ROM Right lower extremity: full ROM; no edema Left lower extremity: full ROM; no edema Psych Mental Status: mental status grossly normal Speech and movement: Normal speech and movement present Affect: normal affect Attitude: cooperative Thought process: Normal thought process present Coding Level of Care Code Est Pt Level 3 (95400) Diagnoses Hypertension, unspecified type I10 Hypertension type: unspecified Pure hypercholesterolemia E78.00 Hyperlipidemia type: pure hypercholesterolemia Other specified hearing loss of both ears H91.8X3 Hearing loss type: other Laterality: bilateral Elevated PSA R97.20 Vertigo R42 Additional Codes GANGA-7 Assessment Billing - GANGA-7 Assessment Tool: GANGA-7 Assessment 88973 ([id number]) PHQ-9 - 50979 - PHQ-9 Billing: Yes ([id number]) Time Spent (min) 34 Assessment & Plan Assessment & Plan (1) Hypertension: Code(s): I10 - Essential (primary) hypertension Category: Medical Qualifiers: Hypertension type: unspecified Qualified Code(s): I10 - Essential (primary) hypertension Plan: Blood pressure 122/80 Discussed lifestyle modifications including dietary changes and physical activity Continue atenolol 25 mg b.i.d. (2) Hyperlipidemia: Comment: follow low chol diet Code(s): E78.5 - Hyperlipidemia, unspecified Category: Medical Qualifiers: Hyperlipidemia type: pure hypercholesterolemia Qualified Code(s): E78.00 - Pure hypercholesterolemia, unspecified Plan: Total cholesterol was 221, LDL 139 HDL 62. Discussed with the patient that his blood pressure is trending in the wrong direction. He would like to continue making dietary changes. Reinforced low-cholesterol diet and activity as tolerated. We will recheck lipid panel kassi (3) Hearing loss: Code(s): H91.90 - Unspecified hearing loss, unspecified ear Category: Medical Qualifiers: Hearing loss type: other Laterality: bilateral Qualified Code(s): H91.8X3 - Other specified hearing loss, bilateral Plan: Bilateral urinates. Reports that he has not had an issues since he got them (4) Elevated PSA: Code(s): R97.20 - Elevated prostate specific antigen [PSA] Category: Medical Plan: Chart review noted that the patient had elevated PSA twice. The last time was in 09/2023. We will repeat PSA levels and advise (5) Vertigo: Code(s): R42 - Dizziness and giddiness Category: Medical Plan: Patient reports that he was getting vertigo intermittently but has not done this since he had his hearing aids. Patient does have meclizine 25 mg q.i.d. p.r.n. ordered. We will continue to monitor Orders: Orders Comprehensive [place]. Panel Fast Today E78.5 - Hyperlipidemia, unspecified, H91.90 - Unspecified hearing loss, unspecified ear, I10 - Essential (primary) hypertension, Z00.00 - Encounter for general adult medical examination without abnormal findings UA CC w/rflx Micro + Cult Today E78.5 - Hyperlipidemia, unspecified, H91.90 - Unspecified hearing loss, unspecified ear, I10 - Essential (primary) hypertension, Z00.00 - Encounter for general adult medical examination without abnormal findings Complete Blood Count Auto Diff Today E78.5 - Hyperlipidemia, unspecified, H91.90 - Unspecified hearing loss, unspecified ear, I10 - Essential (primary) hypertension, Z00.00 - Encounter for general adult medical examination without abnormal findings Lipid Panel Today E78.5 - Hyperlipidemia, unspecified, H91.90 - Unspecified hearing loss, unspecified ear, I10 - Essential (primary) hypertension, Z00.00 - Encounter for general adult medical examination without abnormal findings TSH reflex Free T4 Today E78.5 - Hyperlipidemia, unspecified, H91.90 - Unspecified hearing loss, unspecified ear, I10 - Essential (primary) hypertension, Z00.00 - Encounter for general adult medical examination without abnormal findings Vitamin D 25-OH Total Today E78.5 - Hyperlipidemia, unspecified, H91.90 - Unspecified hearing loss, unspecified ear, I10 - Essential (primary) hypertension, Z00.00 - Encounter for general adult medical examination without abnormal findings PSA,Total (Free>4and<10) Today E78.5 - Hyperlipidemia, unspecified, H91.90 - Unspecified hearing loss, unspecified ear, I10 - Essential (primary) hypertension, Z00.00 - Encounter for general adult medical examination without abnormal findings
== END 2025-05-27 09:51 | disposition home or self-care (01) ==
LOC: HO.HMCH 08:49
PROVIDERS: PCP Internal Medicine
DX: I10 Essential (primary) hypertension (principal); E78.00 Pure hypercholesterolemia, unspecified; H91.8X3 Other specified hearing loss, bilateral; R97.20 Elevated prostate specific antigen [PSA]; R42 Dizziness and giddiness

== ENCOUNTER → 2025-05-27 08:48 | Outpatient (BNVA) | payer BC, SELFPAY | PROVIDERS: PCP Internal Medicine | DX: I10 Essential (primary) hypertension (principal); E78.00 Pure hypercholesterolemia, unspecified; H91.8X3 Other specified hearing loss, bilateral; R97.20 Elevated prostate specific antigen [PSA]; R42 Dizziness and giddiness | CPT/HCPCS: 96127 ==

== ENCOUNTER 2025-08-01 07:49 | Outpatient (REF) | payer BC, SELFPAY ==
--- OUTSIDE RECORDS SUMMARY | 2024-02-04 07:10 | XMS_ITS ---
Author Organization [facility] Address [address] [place] [address] Care Team Providers Care Associate Professor Of Counseling Name Role Phone Alan Vazquez MD Primary Care Provider Ha Donaldson Unavailable [phone] REASON FOR VISIT screening,hx polyps Problems Problem Type SNOMED Code ICD Code Onset Dates Problem Status W/U Status Risk Notes Problem History of polyp of colon (situation) (755940312) Personal history of colonic polyps (Z86.010) Active confirmed Problem Diverticular disease of colon (345119830) Diverticulosis of large intestine without perforation or abscess without bleeding (K57.30) Active confirmed Encounters Encounter Location Date Provider Diagnosis [facility] [place] Out[place] [address] [place] [phone] 02/04/2024 Ha Anderson Encounter for scre ening [...] No Information Progress Notes * NILTON BAEZAOB:1960 (65 yo M)Acc No.[id number]:02/04/2024 COLON WITH MAC Patient: FRITZ LAL Provider: Emmie Anderson MD :1960 A ge:63 Y S ex:Male Date:02/04/2024 [facility] Pcp:Alan Vazquez MD Subjective: * Chief Complaints: [...] 02/04/2024 Generated for Lucy irwin/Hay/Aritting on: 0 08/01/2025 07:52 AM EDT
--- OUTSIDE RECORDS SUMMARY | 2025-08-01 07:53 | XMS_ITS | Patient Health Record ---
Author Organization [facility] Address [address] [place] [id number] Care Team Providers Care Phlebotomy Coordinator Name Role Phone Alan Vazquez MD Primary Care Provider Ha Donaldson Unavailable [phone] Allergies No Known Allergies Reason For Referral No Information Medications Medication SIG (Take, Route, Fr equency, Duration) Notes Start Date End Date Status Atenolol 25 MG TAKE 1 TABLET BY TWICE A DAY Oral for 30 Active Problems Problem Type SNOMED Code ICD Code Onset Dates Problem Status W/U Status Risk Notes Problem 257046154 Encounter for screening for malignant neoplasm of colon (Z12.11) Active confirmed Problem History of polyp of colon (situation) (933815897) Personal history of colonic polyps (Z86.010) Active confirmed Problem Diverticular disease of colon (309578023) Diverticulosis of large intestine without perforation or abscess without bleeding (K57.30) Active confirmed Problem [id number] Preprocedural examination (Z01.818) Active confirmed Problem 423873916 Hx of adenomatou s colonic polyps (Z86.010) Active confirmed Plan Of Treatment Future Test Test Name Order Date COLONOSCOPY 06/24/2014 COLONOSCOPY 06/12/2018 COLONOSCOPY 11/08/2023 Insurance Providers Payer Name Payer Address Payer Phone Subscriber Number Group Number Insured Name Patient Relationship to Insured Coverage Start Date Coverage End Date [facility] [employer] PROF[employer]AL CLAIMS [address] [place] [address] [phone] [id number] 1 FRITZ MIKE Self - patient is the insured Medical (General) History Medical History History ICD Code Denies [place],DM,CVA,Lung disease,renal dise ase Palpitations-on Atenolol Screening colonoscopy in Aug-2 tubular adenomas removed--one of these was approximately 1.5 cm and removed from the rectum--he also had mild sigmoid diverticulosis and minimal internal hemorrhoids Negative screening colonoscopy in June of 2018 Surgical History Surgery Date(Month/Year) Eye surgery
[2025-08-01 08:14] LABS: MANUAL DIFF FLAG NO
[2025-08-01 09:23] LABS: Hematocrit 48.7 % (42.0-52.0); Hemoglobin 17.2 g/dl (14.0-18.0); Imm Gran Abs Auto 0.02 X10*3/uL (0.00-0.03); Imm Gran Pct Auto 0.3 % (0.0-0.4); Lymphocytes Absolute Auto 1.3 X10*3/uL (1.2-4.9); Mean Corpuscular HGB Conc 35.3 g/dl (31.0-36.0); Mean Corpuscular Hemoglobin 31.6 pg (27.0-33.0); Mean Corpuscular Volume 89.4 fL (80.0-98.0); NRBC Abs Auto 0.000 X10*3/uL (0.0-0.012); NRBC Pct Auto 0.0 /100WBC (0.0-0.2); Platelet Count 244 X10*3/uL (160-400); Red Blood Count 5.45 X10*6/uL (4.60-5.80); White Blood Count 6.9 X10*3/uL (4.8-10.8)
[2025-08-01 10:34] LABS: Appearance Urine Clear; Glucose Urine UA Negative (Negative); PH 5.5 (5.0-9.0); Specific Gravity - Urine 1.025 (1.005-1.025)
[2025-08-01 11:03] LABS: Alanine Aminotransferase 25 U/L (0-40); Albumin Level 4.4 g/dL (3.5-5.0); Alkaline Phosphatase 72 U/L (39-117); Anion Gap 14 (12-20); Aspartate Amino Transferase 27 U/L (5-37); Blood Urea Nitrogen 19 mg/dL (9-16); Calcium 9.2 mg/dL (8.4-10.2); Carbon Dioxide 26 mmol/L (22-29); Chloride 105 mmol/L (96-108); Cholesterol 227 mg/dL (<200); Estimated Glomerular Filt Rate > 60; HDL Cholesterol 52 mg/dL (>40); Potassium 4.5 mmol/L (3.3-5.1); Sodium 140 mmol/L (135-145); Total Protein 7.2 g/dL (6.5-8.0); Triglycerides 122 mg/dL (<150)
[2025-08-01 11:07] LABS: PSA,Total (Free>4and<10) 6.11 ng/mL (0.00-4.00)
[2025-08-05 11:38] LABS: Free Prostate Spec Ag 1.6 ng/mL; Percent Free Prostate Spec Ag 29 % (calc) (>25)
== END 2025-08-01 07:50 | disposition home or self-care (01) ==
LOC: HO.LAB 07:49
DX: Z00.00 Encounter for general adult medical examination without abnormal findings (principal); Z12.5 Encounter for screening for malignant neoplasm of prostate; I10 Essential (primary) hypertension; E78.5 Hyperlipidemia, unspecified; H91.90 Unspecified hearing loss, unspecified ear
CPT/HCPCS: 36415; 80053; 80061; 81003; 82306; 84153; 84154; 84443; 85025

== ENCOUNTER 2025-10-29 09:43 | Outpatient (AMB) | payer BC, SELFPAY ==
--- NOTE | 2025-10-29 09:47 | MHC.OFFVIS ---
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 He is a patient of Dr. Harris. He seen for the following urologic conditions - elevated PSA Discussed protective impact of high free PSA Plan repeat lab work and check bladder ultrasound to define large prostate Initial AUA score 4, bother 0 Elevated PSA PSA 08/20 5.5 29% PFSH Medical History Palpitations Hyperlipidemia Surgical History Hx of eye surgery H/O colonoscopy Family History Father No problems noted. Mother No problems noted. 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 Cognitive needs: No Hearing needs: No Vision needs: Yes (glasses) Review of Systems Const Denies chills and Denies fever(s) Card Reports no additional complaints and Denies syncope Resp Denies cough GI Denies abdominal pain and Denies heartburn Reports as per HPI and Denies change in libido Neuro Denies syncope Psych Denies change in libido Endo Denies change in libido Physical Exam Const General: cooperative, healthy appearing, comfortable and no acute distress Orientation/consciousness: patient oriented x3 HEENT Face and sinus: Yes normal facial exam Mouth: moist mucous membranes Neck Neck: Yes normal visual inspection, Yes full ROM and Yes trachea midline Chest Chest palpation & inspection: normal inspection of the chest Resp Effort & Inspection: normal respiratory effort, able to speak in complete sentences and no respiratory distress GI Inspection: Yes normal to inspection Back/Spine/Pelvis Cervical Spine: normal cervical lordosis Thoracic/Lumbar Spine: thoracic and lumbar spine normal to inspection Skin General skin exam: no rashes or lesions noted Neuro General: patient oriented x3, gait normal, tone normal and moves all extremities Extrem General: Yes normal to inspection and Yes capillary refill normal Results AMB Urinalysis, Automated UA Leukoctes 0 Monique/uL Last Edit by Crista Phelps [facility] on 10/29/25 09:54 UA Nitrite Negative Last Edit by [facility] Phelps[facility] on 10/29/25 09:54 UA Urobilinogen 0.2 mg/dL [facility] 10[facility]29/25 09:54 UA Protein 15 mg/dL [facility] on 10/29/25 09:54 UA pH 6.0 [facility] on 10/29/25 09:54 UA Blood 0 Quan/uL [facility] on 10/29/25 09:54 UA Specific [place] 1.025 Last Edit by Crista Phelps, [facility] on 10/29/25 09:54 UA Ketone Negative Last Edit by [facility], [facility] on 10/29/25 09:54 UA Bilirubin 0 mg/dL Last Edit by Crista Lenin, [facility] on 10/29/25 09:54 UA Glucose 0 mg/dL Last Edit by [facility], [facility] on 10/29/25 09:54 Results Reviewed Results Reviewed: Laboratory Last Values Urine pH (Auto) 6.0 10/29/25 09:54 Specific [place] (Auto) 1.025 10/29/25 09:54 Urine Protein (Auto) 15 mg/dL 10/29/25 09:54 Glucose (UA)(Auto) 0 mg/dL 10/29/25 09:54 Urine Ketones (Auto) Negative 10/29/25 09:54 Urine Blood (Auto) 0 Quan/uL 10/29/25 09:54 Urine Nitrite (Auto) Negative 10/29/25 09:54 Urine Bilirubin (Auto) 0 mg/dL 10/29/25 09:54 Urine Urobilinogen (Auto) 0.2 mg/dL 10/29/25 09:54 Leukocyte Esterase (Auto) 0 Monique/uL 10/29/25 09:54 Assessment & Plan Assessment & Plan (1) Elevated PSA: Code(s): R97.20 - Elevated prostate specific antigen [PSA] Category: Medical Plan Three-month follow-up repeat lab work and bladder ultrasound Orders: Orders AMB Urinalysis Automated Today N13.8 - Other obstructive and reflux uropathy, N40.1 - Benign prostatic hyperplasia with lower urinary tract symptoms PSA,Total (Free>4and<10) 3 Months R97.20 - Elevated prostate specific antigen [PSA] US bladder 3 Months R97.20 - Elevated prostate specific antigen [PSA] Patient Instructions: This note is constructed using voice recognition software. While every effort has been made to ensure accuracy university tutor errors may have been included. Imaging studies, laboratory and physical exam results were discussed and reviewed in detail. No major barriers to patient understanding were identified. An opportunity to ask questions regarding the treatment plan was provided. All questions were answered. The patient expressed understanding and agreement with the above treatment plan. The patient is aware they should contact our office by phone for worsening of their current condition or the appearance of new urologic symptoms. Compliance is encouraged with any medications and followup testing that is ordered. It is a privilege to participate in the urologic care of your patient. If you have any questions or concerns regarding treatment for the above conditions, or other urologic issues, please do not hesitate to contact me. The office telephone contact is [phone]. Sincerely, Dr Vinod Coates MD, [facility] - Urology Compassionate Specialist Care for the Genitourinary System Coding Level of Care Code New Pt Level 3 (23927) Diagnoses Elevated PSA R97.20
--- OUTSIDE RECORDS SUMMARY | 2025-10-29 11:14 | XMS_ITS | Patient Health Record ---
Author Organization [facility] Address [address] [place] [id number] Care Team Providers Care Ferryboat Ticket Taker Name Role Phone Alan Vazquez MD Primary Care Provider Ha Donaldson Unavailable [phone] Allergies No Known Allergies Reason For Referral No Information Medications Medication SIG (Take, Route, Fr equency, Duration) Notes Start Date End Date Status Atenolol 25 MG Tablet TAKE 1 TABLET BY M OUTH TWICE A DAY Oral; Duration: 30 Active Social History Social History Additional Details Category Social Info Options Details Miscellaneous: Marital status: single 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 Section Notes: Nonsmoker; no sig alcohol Nonsmoker; no sig alcohol Nonsmoker; no sig alcohol Problems Problem Type SNOMED Code ICD Code Onset Dates Problem Status W/U Status Risk Notes Problem Screening for malignant neoplasm of colon (715640714) Encounter for screening for malignant neoplasm of colon (Z12.11) Active confirmed Problem History of polyp of colon (situation) (029914467) Personal history of colonic polyps (Z86.010) Active confirmed Problem Diverticular disease of colon (927500983) Diverticulosis of large intestine without perforation or abscess without bleeding (K57.30) Active confirmed Problem Preprocedural examination (300031533160463) Preprocedural examination (Z01.818) Active confirmed Problem History of adenomatous polyp of colon (167373048) Hx of adenomatous colonic polyps (Z86.010) Active confirmed Plan Of Treatment Future Test Test Name Order Date COLONOSCOPY 06/24/2014 COLONOSCOPY 06/12/2018 COLONOSCOPY 11/08/2023 Insurance Providers Payer Name Payer Address Payer Phone Subscriber Number Group Number Insured Name Patient Relationship to Insured Coverage Start Date Coverage End Date [employer] PROF[employer]AL CLAIMS [address] [place] [address] [id number] 1 [id number] Self - patient is the insured Medical (General) History Medical History History ICD Code Denies [place],DM,CVA,Lung disease,renal dise ase Palpitations-on Atenolol Screening colonoscopy in Aug-2 tubular adenomas removed--one of these was approximately 1.5 cm and removed from the rectum--he also had mild sigmoid diverticulosis and minimal internal hemorrhoids Negative screening colonoscopy in June of 2018 Surgical History Surgery Date(Month/Year) Eye surgery
== END 2025-10-29 10:36 | disposition home or self-care (01) ==
LOC: HO.HUSH 09:44
PROVIDERS: Visit Provider Urology
DX: N40.1 Benign prostatic hyperplasia with lower urinary tract symptoms (principal); N13.8 Other obstructive and reflux uropathy; R97.20 Elevated prostate specific antigen [PSA]
CPT/HCPCS: 99203

== ENCOUNTER → 2025-10-29 09:43 | Outpatient (BNVA) | payer BC, SELFPAY | PROVIDERS: Visit Provider Urology | DX: N13.8 Other obstructive and reflux uropathy (principal) | CPT/HCPCS: 81003 ==